=== PATIENT | male | born 1990 | race Caucasian/White ===

== ENCOUNTER 2016-05-14 12:50 | Emergency (ER) | payer OTHER ==
[~2016-05-14] VITALS: Ht 195.6 cm; Wt 136.1 kg
[2016-05-14] MEDS ORDERED: AZITHROMYCIN 250 MG TAB PO ONE (18:00)
[2016-05-14] MEDS ORDERED: cefTRIAXone SOD 250 MG VIAL (J0696) IM ONE (18:00)
[2016-05-14 18:30] VITALS: BP 136/85
== END 2016-05-14 18:32 | disposition home or self-care (01) ==
LOC: M ED 15:54
DX: R30.0 Dysuria (principal)
CPT/HCPCS: 81001; 87086; 96372; 99282; J0696